=== PATIENT | female | born 1965 | race Caucasian/White ===

== ENCOUNTER 2016-11-09 09:33 | Emergency (ER) | payer SELFPAY ==
[2016-11-09] MEDS ORDERED: KETOROLAC TROMETHAMINE 30 MG/ML VIAL IV ONE (10:07)
[2016-11-09] MEDS ORDERED: diphenhydrAMINE HCL 50 MG/ML VIAL IV ONE (10:07)
[2016-11-09] MEDS ORDERED: NORMAL SALINE 1,000 ML IV ONE (10:22)
[2016-11-09] MEDS ORDERED: METOCLOPRAMIDE HCL 5 MG/ML VIAL IV ONE (10:22)
--- NOTE | 2016-11-09 10:26 | ERNOTE ---
Date of Service: 11/09/16 Time Seen by Provider: 11/09/16 09:54 Stated Complaint: NAUSEA/FEVER Presenting Symptoms:: cough, fever, other - headache, Nausea, headache Source: patient Exam Limitations: no limitations Immunizations: IMMUNIZATION HX Immunizations Up to Date Yes Allergies/Adverse Reactions: Allergies codeine [Codeine] Allergy (Severe, Verified 11/09/16 09:50) RASH, CANT BREATHE Penicillins Allergy (Severe, Verified 11/09/16 09:50) RASH, CANT BREATHE Sulfa (Sulfonamide Antibiotics) [Sulfa(Sulfonamide Antibiotics)] Allergy (Severe , Verified 11/09/16 09:50) RASH, CANT BREATHE Latex, Natural Rubber Allergy (Mild, Verified 11/09/16 09:50) latex Adverse Reaction (Mild, Verified 11/09/16 09:50) ITCH, RASH pneumococcal 23-valent polysacchari [From Pneumovax 23] Adverse Reaction (Mild, Verified 11/09/16 09:50) FEVER, SEVERE ARM EDEMA, VOMITING Home Medications: HOME MEDICATIONS Buspirone HCl [Buspar] 7.5 mg PO BID #60 tablet 05/24/14 [Last Taken Unknown] ALPRAZolam [Xanax] 1 mg PO TID PRN 02/07/16 [Last Taken Unknown] Ranitidine HCl [Zantac] 150 mg PO HS 02/07/16 [Last Taken Unknown] Aripiprazole [Abilify] 2 mg PO DAILY 11/09/16 [Last Taken Unknown] - History of Present Ilness Narrative: Pt. comes in with c/o cough, headache, nausea, fever, chills, and night sweatsfor four days. Pt. denies any SOB, CP, vomiting or diarrhea. Pt. states that she has had hot flashes and sweating as well and has been able to eat and drink but has not been able to eat or drink as much. Review of Systems - Review of Systems Constitutional: Present: fever, chills, diaphoresis, weakness, fatigue, malaise , decreased activity level. Absent: recent illness EYE: Present: no symptoms reported ENT: Present: no symptoms reported. Absent: ear pain, nose congestion, nasal drainage, sore throat, throat swelling Respiratory: Present: cough. Absent: shortness of breath, wheezing Cardiology: Present: no symptoms reported. Absent: chest pain, palpitations, edema Gastrointestinal/Abdominal: Present: nausea. Absent: vomiting, diarrhea, abdominal pain Genitourinary: Present: no symptoms reported. Absent: frequency, pain, dysuria , hematuria Musculoskeletal: Present: no symptoms reported. Absent: back pain, joint pain Skin: Present: no symptoms reported Neurological: Present: headache, dizziness/light-headedness - occasional. Absent: numbness, tingling All Other Systems: All systems neg except as marked - Patient's Past Medical History Patient History - Medical: Anxiety, Chronic Pain, Headache Patient History - Cardiac/Respiratory: No pertinent hx Patient History - Cancer: No Hx of Cancer Patient History - Surgical Procedures: Hysterectomy, Other Patient History - Other: None LMP (females 10-50): Menopausal - Social History Living Situations: home Abuse History: No History of abuse Psych History: Hx of Anxiety Smoking Status: Current every day smoker Alcohol Use: none Drug Use: none - Immunizations Immunizations Up to Date: Yes Physical Exam - Physical Exam General Appearance: Present: wd/wn, alert, no apparent distress Eye Exam: Normal inspection: bilateral, PERRL: bilateral, EOMI: bilateral Ears, Nose, Throat: Present: normal ENT inspection, normal pharynx Neck: Present: normal inspection, nontender. Absent: lymphadenopathy (R), lymphadenopathy (L), tender posterior midline Respiratory: Present: no respiratory distress, no accessory muscle use, chest nontender, lungs clear, decreased breath sounds Cardiovascular/Chest: Present: regular rate, rhythm, no murmur, normal peripheral pulses Gastrointestinal/Abdominal: Present: normal bowel sounds, nontender, nondistended, soft, no organomegaly Back Exam: Present: normal inspection, normal range of motion, no CVA tenderness , no vertebral tenderness Extremity Exam: Present: normal inspection, non-tender, normal range of motion, no edema Neurological Exam: Present: alert, oriented, normal mood/affect, no motor/ sensory deficits Skin Exam: Present: warm/dry, pallor. Absent: skin rash Lymphatic Exam: Present: no adenopathy ED Progress - Results and Orders Patient's Lab Results:: I have reviewed the patient's lab results. - Vital Signs Patient's Vital Signs:: I have reviewed the patient's vital signs. Vital Signs: Vital Signs 11/09/16 09:38 Temperature 36.8 C Pulse Rate 94 Respiratory 14 Rate Blood Pressure 100/66 O2 Sat by Pulse 98 Oximetry - X-Ray X-Ray #1 X-Ray: chest Interpretation: Reviewed by me X-ray Comments: No acute - Progress/Reassessment Chief Complaint: Cough Progress:: Improved Departure - Departure Clinical Impression: Upper respiratory infection Qualifiers: URI type: unspecified viral URI Qualified Code(s): J06.9 - Acute upper respiratory infection, unspecified; B97.89 - Other viral agents as the cause of diseases classified elsewhere Migraine Qualifiers: Migraine type: without aura Status migrainosus presence: without status migrainosus Intractability: not intractable Qualified Code(s): G43.009 - Migraine without aura, not intractable, without status migrainosus Disposition: Home self-care Condition: Good Instructions: Upper Respiratory Infection, Adult, [id number], Recurrent Migraine Headache, [id number] Additional Instructions: Please follow up with your primary provider in 2-3 days. Referrals: Lacy Boo MD [Primary Care Provider] -
[2016-11-09 10:29] LABS: Hematocrit 41.7 % (37.0-47.0); Hemoglobin 13.7 gm/dL (12.5-16.0); Mean Cell Volume 93.1 fl (78-100); Mean Corpuscular Hemoglobin 30.6 pg (27-31); Mean Corpuscular Hgb Conc 32.9 g/dl (32-36); Mean Platelet Volume 9.3 fl (6.0-9.5); Neutrophil # 5.3 K/mm3 (1.3-6.0); Neutrophil % 67.4 % (42-75.0); Platelet Count 213 K/mm3 (150-450); Red Blood Count 4.48 M/mm3 (4.2-5.4); Red Cell Distribution Width 12.4 % (11.5-14.0); White Blood Count 7.8 K/mm3 (4.0-10.5)
--- OUTSIDE RECORDS SUMMARY | 2016-11-09 10:30 | XMS REPORT | Continuity of Care Document ---
:1965 Author Organization [facility] ([facility]) Address [address] [place] [address] Phone [phone] Care Team Providers Name Role Phone Lacy Boo Primary Care Provider [phone] Source Comments This disclosure is being made pursuant to the Care Everywhere program, applicable federal and state laws, and may not contain all informaitonavailable regarding this patient.[facility] ([facility]) Active Allergies and Adverse Reactions Allergen Noted Date Severity Reactions Comments Bee Stings 05/01/2010 Angioedema Codeine Urticaria (Hives) Hydromorphone 05/30/2014 Urticaria (Hives) Latex, Natural Rubber Urticaria (Hives) Mold 09/15/2012 OTHER Ear pain, sinus problems Other Agent 04/11/2014 Urticaria (Hives) Pepperoni and vinegar Penicillins Urticaria (Hives) Pneumococcal 23-Paz Ps 07/19/2012 OTHER Hives/breathing Vaccine trouble. [place] 04/11/2014 Urticaria (Hives) Sulfadoxine Urticaria (Hives) Current Medications Prescription Sig. Disp. Refills Start Date End Date Status fluticasone 50 use 2 Sprays into 16 g 3 03/09/2013 Active mcg/Actuation nasal the nose daily. spray Indications: sinus symptoms ranitidine 150 mg Take 150 mg by Active tablet mouth at bedtime. albuterol 90 Use 2 Puffs by 1 Inhaler 0 07/29/2014 Active mcg/Actuation inhaler inhalation every 6 hours as needed. Must be seen for next refill. Indications: BRONCHOSPASM PREVENTION ALPRAZolam 0.5 mg Take 0.5 mg by Active tablet mouth at bedtime as needed. aripiprazole Take 5 mg by mouth Active (ABILIFY) 5 mg tablet daily. levETIRAcetam 500 mg Take 1 tablet (500 60 tablet 3 09/22/2015 Active tablet mg total) by mouth 2 times daily. busPIRone 7.5 mg Take 7.5 mg by 2015 Active tablet mouth 2 times daily. lamoTRIgine 100 mg Take 100 mg by 09/19/2015 Active tablet mouth at bedtime. Active Problems Problem Noted Date Chronic neck pain 10/10/2014 Bilateral hand numbness 10/10/2014 Neck pain 05/30/2014 Cervical spondylosis without myelopathy 05/30/2014 Microscopic hematuria 04/16/2014 Pelvic floor dysfunction 01/31/2014 Bladder pain 01/31/2014 Mixed incontinence 01/31/2014 Fecal incontinence 01/31/2014 Health education/counseling 07/19/2012 Low back pain 12/16/2010 Other physical therapy 12/16/2010 Immunizations Name Dates Previously Given Next Due Influenza, PF 07/19/2012,05/14/2011,05/01/2010 Influenza, quadrivalent PF 06/06/2013 Pneumococcal Polysaccharide, PPSV23 05/14/2011 (Pneumovax 23) Social History Tobacco Use Types Packs/Day Years Used Date Current Every Day Smoker Cigarettes 0.5 Smokeless Tobacco: Never Used Tobacco Cessation:Ready to Quit: Yes; Counseling Given: Yes Comments:pt. states she smokes 2-3 cig. a day plus a vapor cig. Alcohol Use Drinks/Week oz/Week Comments Yes 1 Glasses of wine 3 drinks a week. 1 Cans of beer Last Filed Vital Signs Vital Sign Reading Time Taken Blood Pressure 123/73 03/15/2016 11:14 AM CDT Pulse 79 03/15/2016 11:14 AM CDT Temperature 36.2 C (97.2 F) 03/15/2016 11:14 AM CDT Respiratory Rate 18 10/22/2015 2:53 PM CDT Height 1.613 m (5' 3.5") 03/15/2016 11:14 AM CDT Weight 58 kg (127 lb 13.9 oz) 03/15/2016 11:14 AM CDT Body Mass Index 22.29 03/15/2016 11:14 AM CDT Oxygen Saturation 98% 11/26/2015 12:27 PM CDT Plan of Care Patient Goal Type Goal Lifestyle Quit smoking / using tobacco Health Maintenance Due Date Last Done Comments Hepatitis B Vaccine (1 of 3 1965 - Primary Series) Tdap Vaccine 11/18/1978 MMR Vaccine 11/18/1985 Cervical Cancer Screening 06/02/2013 06/02/2010 Mammogram 09/15/2013 09/15/2012, 08/09/2011, 06/02/2010 Td Vaccine 12/04/2014 12/04/2004 (Previously completed) Lipid Disorder Screening 12/05/2015 12/04/2010, 05/01/2010 Influenza Vaccine: Seasonal 03/01/2016 06/06/2013, Additional history exists (#1) 07/19/2012, 05/14/2011 Results from Last 3 Months Not on file
[2016-11-09] MEDS ORDERED: diphenhydrAMINE HCL 50 MG/ML VIAL ONE (10:36)
[2016-11-09] MEDS ORDERED: KETOROLAC TROMETHAMINE 30 MG/ML VIAL ONE (10:37)
[2016-11-09] MEDS ORDERED: METOCLOPRAMIDE HCL 5 MG/ML VIAL ONE (10:37)
[2016-11-09 10:40] LABS: ALT 19 U/L (19-67); AST 15 U/L (0-48); Albumin * 3.9 gm/dl (3.4-5.0); Alkaline Phosphatase * 72 U/L (50-170); Anion Gap 10.1 mmol/L (6.8-13.8); Bilirubin, Total 0.3 mg/dL (0.0-1.1); Blood Urea Nitrogen 15 mg/dL (3-23); Ca. Corrected For Albumin 8.7 mg/dL (8.4-10.2); Calcium * 8.9 mg/dL (7.9-10.9); Carbon Dioxide 30.8 mmol/L (24-32.6); Chloride 106 mmol/L (97-106); Glucose * 90 mg/dL (70-110); Potassium 3.9 mmol/L (3.4-4.6); Sodium 143 mmol/L (132-142)
[2016-11-09 13:08] VITALS: BP 112/65
== END 2016-11-09 13:05 | disposition home or self-care (01) ==
LOC: ER 09:33
DX: J06.9 Acute upper respiratory infection, unspecified (principal); B97.89 Other viral agents as the cause of diseases classified elsewhere; G43.009 Migraine without aura, not intractable, without status migrainosus; Z72.0 Tobacco use; F41.9 Anxiety disorder, unspecified

== ENCOUNTER 2017-02-08 11:10 | Observation (INO) | payer OTHER ==
--- NOTE | 2017-02-08 11:24 | ERNOTE ---
Chest Pain/Cardiac HPI Time Seen by Provider: 02/08/17 11:10 Source: patient Exam Limitations: no limitations Immunizations: IMMUNIZATION HX Immunizations Up to Date Yes Allergies/Adverse Reactions: Allergies codeine [Codeine] Allergy (Severe, Verified 02/08/17 14:55) RASH, CANT BREATHE Penicillins Allergy (Severe, Verified 02/08/17 14:55) RASH, CANT BREATHE Sulfa (Sulfonamide Antibiotics) [Sulfa(Sulfonamide Antibiotics)] Allergy (Severe , Verified 02/08/17 14:55) RASH, CANT BREATHE Latex, Natural Rubber Allergy (Mild, Verified 02/08/17 14:55) latex Adverse Reaction (Mild, Verified 02/08/17 14:55) ITCH, RASH pneumococcal 23-valent polysacchari [From Pneumovax 23] Adverse Reaction (Mild, Verified 02/08/17 14:55) FEVER, SEVERE ARM EDEMA, VOMITING Home Medications: HOME MEDICATIONS Buspirone HCl [Buspar] 7.5 mg PO BID #60 tablet 05/24/14 [Last Taken Unknown] ALPRAZolam [Xanax] 1 mg PO TID PRN 02/07/16 [Last Taken Unknown] Ranitidine HCl [Zantac] 150 mg PO HS 02/07/16 [Last Taken Unknown] Aripiprazole [Abilify] 2 mg PO DAILY 11/09/16 [Last Taken Unknown] Narrative: Patient woke up this morning not feeling well with chest pain and shortness of breath, she had no symptoms when she went to bed last night. She also complains about tingling in her left arm Date (Duration): 02/08/17 Time (Timing): 05:00 Timing: constant, getting worse Severity/Quality: severe, tightness Location: epigastric Chest Pain Radiation: no radiation Activities at Onset: none Modifying Factors - Improves: Present: nothing Modifying Factors - Worsens: Present: nothing Nitro Today/Relief: no nitro taken today Aspirin Treatment Today: no aspirin today Associated Symptoms: Present: shortness of breath. Absent: dizziness, diaphoresis, fever/chills, nausea, vomiting Prior Chest Pain/Cardiac Workup: Reports: prior chest pain - years ago, was diagnosed with tachycardia Prior Treatment: Denies: recently seen Review of Systems - Review of Systems Constitutional: Absent: recent illness, fever, chills Respiratory: Present: See HPI, shortness of breath Cardiology: Present: See HPI, chest pain Gastrointestinal/Abdominal: Absent: nausea, vomiting, diarrhea, abdominal pain Genitourinary: Present: no symptoms reported Musculoskeletal: Present: no symptoms reported Neurological: Absent: headache - Patient's Past Medical History Patient History - Medical: Anxiety, Chronic Pain, Depression, Headache Patient History - Cardiac/Respiratory: No pertinent hx Patient History - Cancer: No Hx of Cancer Patient History - Surgical Procedures: Hysterectomy, Other Patient History - Other: None - Social History Living Situations: home Abuse History: No History of abuse Psych History: Hx of Anxiety Smoking Status: Current every day smoker Cigarettes Packs Per Day: 0.3 Alcohol Use: rarely Drug Use: none - Immunizations Immunizations Up to Date: Yes Physical Exam - Physical Exam General Appearance: Present: wd/wn, alert, no apparent distress, anxious Ears, Nose, Throat: Present: normal pharynx Respiratory: Present: no respiratory distress, normal breath sounds, no accessory muscle use, chest nontender, lungs clear Cardiovascular/Chest: Present: regular rate, rhythm, no murmur Gastrointestinal/Abdominal: Present: normal bowel sounds, nontender, nondistended, soft Extremity Exam: Present: no edema Neurological Exam: Present: alert, oriented, normal mood/affect, no motor/ sensory deficits Skin Exam: Present: normal color, warm/dry ED Progress - Results and Orders Patient's Lab Results:: I have reviewed the patient's lab results. - Vital Signs Patient's Vital Signs:: I have reviewed the patient's vital signs. - EKG EKG: NSR - sinustachycardia, very prominent Pwavese, no ST T wave changes, other - very prominent P waves, EKG read: Interp. by me - X-Ray X-Ray #1 X-Ray: chest - no acute Interpretation: Reviewed by me - Progress/Reassessment Progress Note-Subjective: 02/08/17 12:01 slight relieve with nitro, pain down to 7/10 discussed normal test results 02/08/17 12:16 no relieve with GI cocktail, discussed limitation of test to rule our CAD, patient would prefer admission had normal stress test in 09/2014 found out a couple of days ago that a close friend of hers had a heart attack, denies anxiety and need for xanax at this point 02/08/17 12:44 discussed with theodore Iniguez to admit for chest pain rule out Departure - Departure Clinical Impression: Chest pain Qualifiers: Chest pain type: precordial pain Qualified Code(s): R07.2 - Precordial pain Disposition: [facility] Condition: Good
[2017-02-08 11:27] LABS: Hematocrit 40.5 % (37.0-47.0); Mean Corpuscular Hemoglobin 31.1 pg (27-31); Mean Corpuscular Hgb Conc 34.6 g/dl (32-36); Mean Platelet Volume 9.1 fl (6.0-9.5); Neutrophil # 2.9 K/mm3 (1.3-6.0); Neutrophil % 48.9 % (42-75.0); Platelet Count 230 K/mm3 (150-450); Red Cell Distribution Width 12.4 % (11.5-14.0); White Blood Count 5.9 K/mm3 (4.0-10.5)
[2017-02-08 11:39] LABS: Prothrombin Time (Patient) 10.7 Seconds (9.4-11.4)
[2017-02-08 11:42] LABS: INR 1.03 INR (0.90-1.10)
[2017-02-08] MEDS ORDERED: NITROGLYCERIN 0.4 MG/TAB BTL SL ONE ×3 (11:42→12:17)
[2017-02-08 11:46] LABS: ALT 19 U/L (19-67); AST 13 U/L (0-48); Albumin * 3.7 gm/dl (3.4-5.0); Alkaline Phosphatase * 96 U/L (50-170); Anion Gap 10.4 mmol/L (6.8-13.8); BUN/Creatinine Ratio 9.9 (9.0-21.6); Bilirubin, Total 0.5 mg/dL (0.0-1.1); Blood Urea Nitrogen 8 mg/dL (3-23); Ca. Corrected For Albumin 8.9 mg/dL (8.4-10.2); Carbon Dioxide 29.5 mmol/L (24-32.6); Chloride 106 mmol/L (97-106); Glucose * 94 mg/dL (70-110); Potassium 3.9 mmol/L (3.4-4.6); Sodium 142 mmol/L (132-142); Troponin I Less than 0.017 ng/ml (0.00-0.10)
[2017-02-08] MEDS ORDERED: MAG HYDROX/ALUMINUM HYD/SIMETH 30 ML UDC PO ONE (11:59)
[2017-02-08] MEDS ORDERED: LIDOCAINE HCL 20 ML UDC PO ONE (11:59)
[2017-02-08] MEDS ORDERED: SUCRALFATE 1 G/10 ML UDC PO ONE (11:59)
[2017-02-08] MEDS ORDERED: NORMAL SALINE 1,000 ML IV ONE (12:17)
[2017-02-08] MEDS ORDERED: ASPIRIN 81 MG TAB.CHEW PO ONE (12:51)
[2017-02-08] MEDS ORDERED: ASPIRIN 81 MG TAB.CHEW ONE (12:51)
[2017-02-08] MEDS ORDERED: ATORVASTATIN CALCIUM 40 MG TABLET PO STA (12:53)
[2017-02-08] MEDS ORDERED: ATORVASTATIN CALCIUM 40 MG TABLET ONE (13:20)
[2017-02-08] MEDS ORDERED: ACETAMINOPHEN 325 MG TABLET PO PRN (14:50)
[2017-02-08 15:42] VITALS: BP 119/67
--- NOTE | 2017-02-08 18:35 | HP ---
Chief Complaint - Chief Complaint Date of Service: 02/08/17 Time of Service: 18:35 Chief Complaint: pain under LT breast on waking up. History of Present Illness: Patient is a 51-year-old WF with a H/O anxiety, depression, tobacco abuse, GERD with who had pain under the left breast on waking up. It was associated with mild SOB, no nausea, diaphoresis, or radiation[ told ERP she had tingling in her fingers]. No relief with GI cocktail, relieved with nitroglycerin. Admitted as a "rule out". Stress test negative in 09/2014. EKG and troponin normal in ER. - Patient's Past Medical History Patient History - Medical: Anxiety, Chronic Pain, Depression, Headache Patient History - Cancer: No Hx of Cancer Patient History - Surgical Procedures: Hysterectomy, Other Patient History - Other: None LMP (females 10-50): Menopausal - Family History Mother Family History - Medical: History Unknown Father Family History - Medical: - neck cancer 71 - Social History Living Situations: home Abuse History: No History of abuse Psych History: Hx of Anxiety Smoking Status: Current every day smoker - one third pack since age 17 Cigarettes Packs Per Day: 0.3 Have you smoked in the past 12 months: Yes Do you dip or chew tobacco: No Patient requests Smoking Cessation Consult: No Alcohol Use: rarely Drug Use: none - Immunizations Immunizations Up to Date: Yes Hx Pneumococcal Vaccination: Yes History of Influenza Vaccine: Yes Immunizations: IMMUNIZATION HX Immunizations Up to Date Yes Allergies/Adverse Reactions: Allergies Allergy/AdvReac Type Severity Reaction Status Date / Time codeine [Codeine] Allergy Severe RASH, CANT Verified 02/08/17 14:55 BREATHE Penicillins Allergy Severe RASH, CANT Verified 02/08/17 14:55 BREATHE Sulfa (Sulfonamide Allergy Severe RASH, CANT Verified 02/08/17 14:55 Antibiotics) BREATHE [Sulfa(Sulfonamide Antibiotics)] Latex, Natural Rubber Allergy Mild Verified 02/08/17 14:55 latex AdvReac Mild ITCH, RASH Verified 02/08/17 14:55 pneumococcal 23-valent AdvReac Mild FEVER, Verified 02/08/17 14:55 polysacchari SEVERE ARM [From Pneumovax 23] EDEMA, VOMITING Home Medications: HOME MEDICATIONS Buspirone HCl [Buspar] 7.5 mg PO BID #60 tablet 05/24/14 [Last Taken Unknown] ALPRAZolam [Xanax] 1 mg PO TID PRN 02/07/16 [Last Taken Unknown] Ranitidine HCl [Zantac] 150 mg PO HS 02/07/16 [Last Taken Unknown] Aripiprazole [Abilify] 2 mg PO DAILY 11/09/16 [Last Taken Unknown] Exam - Exam Vital Signs: Vital Signs - Last Taken Temp 36.9 C 02/08/17 15:05 Pulse 61 02/08/17 15:05 Resp 16 02/08/17 15:05 BP 119/67 02/08/17 15:05 Pulse Ox 100 02/08/17 15:05 Constitutional: Present: Young, Thin and frail - alert , in NAD ENT Exam: Present: hearing grossly normal, moist mucous membranes Eye Exam: bilateral eye: PERRL, EOMI Neck: Present: normal inspection, trachea midline Respiratory: Present: normal breath sounds. Absent: crackles Cardiovascular/Chest: Present: regular rate, rhythm. Absent: systolic murmur Peripheral Pulses: carotid (R): 2+, carotid (L): 2+ Abdomen: Present: Normal bowel sounds, soft - midly tender in midepigastrium, no rebound, mo masses. /Rectal: Present: Exam deferred Skin Exam: Present: normal color, warm/dry Eye contact: Present: cooperative, good eye contact, normal speech Thoughts: Present: normal thought pattern, normal mood /affect Diagnostic Studies: Laboratory Tests 02/08/17 11:20 WBC 5.9 Hgb 14.0 Hct 40.5 Plt Count 230 02/08/17 02/08/17 11:20 17:21 Troponin I Less than 0.017 Less than 0.017 02/08/17 11:20 Plasma Sodium 142 Potassium 3.9 BUN 8 Creatinine 0.81 Est GFR (Non-Af Amer) 80 Random Glucose 94 Calcium Adj for Albumin 8.9 Total Bilirubin 0.5 AST 13 ALT 19 Alkaline Phosphatase 96 Total Protein 7.0 Albumin 3.7 CXR: 02/08/17: 1. Stable chest. No acute cardiopulmonary processes identified. EK02/08/2017: NSR. No acute changes. Assessment/Plan - Procedures Results: 1. Precordial chest pain: Cardiac risk factors are: 1. Postmenopausal 2. Tobacco abuse Repeat troponin and EKG at approximately 17:30 PM Pain might be GI in nature. 2. Anxiety and depression: Chronic and stable. 3. Tobacco abuse: 4. GERD.
--- NOTE | 2017-02-08 18:58 | DS ---
(1) Chest pain, unspecified Problem: Acute Qualifiers: Chest pain type: unspecified Qualified Code(s): R07.9 - Chest pain, unspecified (2) Anxiety and depression Problem: Chronic (3) Chronic GERD Problem: Chronic (4) Nicotine abuse Problem: Chronic Description of Stay: DATE OF ADMISSION: 02/08/2017. DATE OF DISCHARGE: 02/08/2017. DIAGNOSTICS: NONE DISCHARGE SUMMARY: Patient is a 51-year-old WF with a H/O anxiety, depression, tobacco abuse, GERD with who had pain under the left breast on waking up. It was associated with mild SOB, no nausea, diaphoresis, or radiation[ told ERP she had tingling in her fingers]. No relief with GI cocktail, relieved with nitroglycerin. Admitted as a "rule out". Stress test negative in 09/2014. EKG and troponin normal in ER. On exam patient had mild epigastric tenderness and possible right upper quadrant pain. Serial troponins were negative. Patient was discharged in a stable condition and was advised to quit nicotine. She was advised to get right upper quadrant ultrasound on an outpatient basis. Increase ranitidine from 150 mg daily to 150 mg PO BID AC. Procedures Performed: none Discharge Disposition: Home self care Disposition: Home self-care Condition: Undetermined Discharge Activity: Activity as tolerated Referrals: Lacy Boo MD [Primary Care Provider] - Problem Oriented Discharge Instructions to Patient/Family: Smoking Cessation, Tips for Success, [id number], Indigestion, Emum-aa-[id number] Additional Patient Instructions (free text): New medications: Ranitidine increased from 150 mg@ HS to 150 mg PO BID AC. Please given handouts on 1. GERD precautions. 2. Smoking cessation. Patient to have ultrasound of right upper quadrant as outpatient on February 11, 2017 at 11Am. NPO after midnight before the ultrasound. Appointment with Dr. Moreau in 2-3 weeks. Prescriptions (Any new or edited meds): Ranitidine HCl [Zantac] 150 mg PO BIDAC #60 tablet Complete Home Medications List: Complete Home Medication List: Buspirone HCl [Buspar] 7.5 mg PO BID #60 tablet 05/24/14 ALPRAZolam [Xanax] 1 mg PO TID PRN 02/07/16 Aripiprazole [Abilify] 2 mg PO DAILY 11/09/16 Ranitidine HCl [Zantac] 150 mg PO BIDAC #60 tablet 02/08/17 levETIRAcetam [Keppra] 500 mg PO BID #20 tablet 02/24/17 Amb Orders for Discharge: US Abd Single Organ (Limited) Time Frame: 2 Weeks, Location: Determined By Patient
== END 2017-02-08 19:30 | disposition home or self-care (01) ==
LOC: ER 11:10 → MS 12:50
PROVIDERS: ADMIT Internal Medicine; ATTEND Internal Medicine
DX: R07.9 Chest pain, unspecified (principal); K21.9 Gastro-esophageal reflux disease without esophagitis; F41.8 Other specified anxiety disorders; Z72.0 Tobacco use
CPT/HCPCS: 36415; 71020; 80053; 84484; 85025; 85379; 85610; 85730; 93005; 99284; G0378

== ENCOUNTER 2017-02-24 19:29 | Emergency (ER) | payer OTHER ==
[2017-02-24] MEDS ORDERED: levETIRAcetam 500 MG TABLET ONE (20:06)
[2017-02-24] MEDS ORDERED: levETIRAcetam 500 MG TABLET PO ONE (20:15)
--- NOTE | 2017-02-24 20:15 | ERNOTE ---
Neuro HPI ER Record Date of Service: 02/24/17 Presenting Symptoms: weakness, other - SON Time Seen by Provider: 02/24/17 20:04 Source: patient Exam Limitations: no limitations Immunizations: IMMUNIZATION HX Immunizations Up to Date Yes History of Influenza Vaccine No Hx Pneumococcal Vaccination No Allergies/Adverse Reactions: Allergies Allergy/AdvReac Type Severity Reaction Status Date / Time codeine [Codeine] Allergy Severe RASH, CANT Verified 02/24/17 19:42 BREATHE Penicillins Allergy Severe RASH, CANT Verified 02/24/17 19:42 BREATHE Sulfa (Sulfonamide Allergy Severe RASH, CANT Verified 02/24/17 19:42 Antibiotics) BREATHE [Sulfa(Sulfonamide Antibiotics)] Latex, Natural Rubber Allergy Mild Verified 02/24/17 19:42 latex AdvReac Mild ITCH, RASH Verified 02/24/17 19:42 pneumococcal 23-valent AdvReac Mild FEVER, Verified 02/24/17 19:42 polysacchari SEVERE ARM [From Pneumovax 23] EDEMA, VOMITING Home Medications: HOME MEDICATIONS Buspirone HCl [Buspar] 7.5 mg PO BID #60 tablet 05/24/14 [Last Taken Unknown] ALPRAZolam [Xanax] 1 mg PO TID PRN 02/07/16 [Last Taken Unknown] Aripiprazole [Abilify] 2 mg PO DAILY 11/09/16 [Last Taken Unknown] Ranitidine HCl [Zantac] 150 mg PO BIDAC #60 tablet 02/08/17 [Last Taken Unknown] levETIRAcetam [Keppra] 500 mg PO BID #20 tablet 02/24/17 [Last Taken Unknown] - History of Present Illness Narrative: 51-year-old female presents to the emergency room after she says she had 2 seizures at work. Patient states that she has a history of epilepsy and that she quit taking her Keppra over a year because she was told she did not need it anymore. Patient states that she had neck surgery and after the external back they told her she did not need it Anymore so she quit taking it. patient states she was incontinant during her 2 seizures. she is able to recognize when she is going to have one and knows what to do. Date (Duration): 02/24/17 - Character of Deficits Baseline Cognition: Present: alert, oriented x 4 Baseline Gait: Present: walks w/o assistance Associated Symptoms: Denies: fever/chills, sweating, chest pain, altered mental status, decreased responsiveness Review of Systems - Review of Systems Constitutional: Present: See HPI, other - seizure EYE: Present: no symptoms reported ENT: Present: no symptoms reported Respiratory: Present: no symptoms reported Cardiology: Present: no symptoms reported Gastrointestinal/Abdominal: Present: no symptoms reported Genitourinary: Present: no symptoms reported Musculoskeletal: Present: no symptoms reported Skin: Present: no symptoms reported Neurological: Present: See HPI, seizure Endocrine: Present: no symptoms reported Hematologic/Lymphatic: Present: no symptoms reported Psych: Present: no symptoms reported All Other Systems: All systems neg except as marked - Patient's Past Medical History Patient History - Medical: Anxiety, Chronic Pain, Depression, Headache, Seizures Patient History - Cardiac/Respiratory: Arrhythmias, Hypertension Patient History - Cancer: No Hx of Cancer Patient History - Surgical Procedures: Hysterectomy, Tubal Ligation, Other, Hernia Repair Patient History - Other: None - Family History Mother Family History - Medical: History Unknown Family History - Cardiac/Respiratory: History Unknown Family History - Cancer: History Unknown Adoption Family History - Cardiac/Respiratory: TIA Father Family History - Medical: Family History - Cardiac/Respiratory: History Unknown Family History - Cancer: History Unknown - Social History Living Situations: home Abuse History: No History of abuse Psych History: Hx of Anxiety, Hx of Depression, Current tx/ever been on anti- depressants or anti-anxiety meds Smoking Status: Current every day smoker Alcohol Use: rarely Drug Use: none - Immunizations Immunizations Up to Date: Yes Hx Pneumococcal Vaccination: No History of Influenza Vaccine: No Physical Exam - Physical Exam Narrative: no seizures observed during her stay. patient alert and oriented, able to recall her seizures. General Appearance: Present: wd/wn, alert, no apparent distress Head Exam: Present: normal inspection, no evidence of injury Eye Exam: Normal inspection: bilateral Ears, Nose, Throat: Present: normal ENT inspection, normal pharynx Neck: Present: normal inspection, nontender Respiratory: Present: no respiratory distress, normal breath sounds, no accessory muscle use, chest nontender, lungs clear Cardiovascular/Chest: Present: regular rate, rhythm, no murmur, normal peripheral pulses Gastrointestinal/Abdominal: Present: normal bowel sounds, nontender, nondistended, soft, no organomegaly Back Exam: Present: normal inspection, normal range of motion, no CVA tenderness , no vertebral tenderness Extremity Exam: Present: normal inspection, non-tender, normal range of motion, no edema Neurological Exam: Present: alert, oriented, normal mood/affect, no motor/ sensory deficits, 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 Absent: facial droop, motor weakness Skin Exam: Present: normal color, warm/dry Lymphatic Exam: Present: no adenopathy ED Progress - Results and Orders Patient's Lab Results:: I have reviewed the patient's lab results. Results and Orders: positive for methamphetamine - Vital Signs Vital Signs: Vital Signs 02/24/17 02/24/17 19:35 19:53 Temperature 36.4 C L Pulse Rate 93 89 Respiratory 18 19 Rate Blood Pressure 95/57 115/63 O2 Sat by Pulse 98 93 Oximetry - CT/Ultrasound CT/Ultrasound Narrative: [facility] PATIENT RADIOLOGY STUDY REPORT Patient Patient Name:VALERIA STARR Date: 1965 Sex: F Order Number: [id number] Unique Exam ID: [id number] Exam Requested: HEADW/O - CT Head W/O * Date Scheduled: 02-24-2017 09:05 PM Study Priority: Requesting Service: Requesting Physician: Carlos Greer Reason for Exam: seizure Radiological Report : [facility] [address] [place] [id number] NAME: VALERIA STARR : 1965 MR #: [id number] 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 Seizure today. Headache. Dizziness. Black spots in vision. Technique: Multiple axial images of the head obtained without contrast enhancement. Comparison: 11/09/2013 Findings: Exam shows symmetric appearing ventricular system and cortical sulci. There is no positive mass effect or midline shift. There is no evidence for intracranial hemorrhage. There are no focal abnormal hypodensities to suggest vascular territory infarct. Visualized paranasal sinuses and mastoid air cells appear adequately aerated. IMPRESSION: STABLE NEGATIVE EXAM. Electronically signed by Topher Diez M.D.. Topher Diez MD Dict: 02/24/172109 Typed: 02/24/172109/ - Progress/Reassessment Chief Complaint: Seizure Activity Plan - Plan Plan: I spoke with the neurologist on-call ( Dr Arenas) who is a neurologist partner that she has sees. He advised to start patient on Keppra 500 mg by mouth twice a day and have her follow-up in the office tomorrow. Patient agrees to this plan of treatment. Departure Clinical Impression: Seizure - Departure Disposition: Home Follow Up Needed Condition: Stable Instructions: Epilepsy, [id number] Additional Instructions: Continue any previous home medications as directed. Given instructed to take her Keppra twice a day. Follow up with her neurologist in the morning. You should call his office and make an appointment. They are aware they need to be seen as soon as soon as possible tomorrow. Return to emergency room if symptoms return or become worse. Referrals: Lacy Boo MD [Primary Care Provider] - Leanne Winn MD [Staff Physician] - Prescriptions: levETIRAcetam [Keppra] 500 mg PO BID #20 tablet
[2017-02-24] MEDS ORDERED: KETOROLAC TROMETHAMINE 30 MG/ML VIAL IM ONE (20:16)
[2017-02-24] MEDS ORDERED: KETOROLAC TROMETHAMINE 30 MG/ML VIAL ONE (20:24)
[2017-02-24 20:30] LABS: Hematocrit 37.7 % (37.0-47.0); Hemoglobin 12.6 gm/dL (12.5-16.0); Mean Cell Volume 92.2 fl (78-100); Mean Corpuscular Hemoglobin 30.8 pg (27-31); Mean Corpuscular Hgb Conc 33.4 g/dl (32-36); Mean Platelet Volume 9.2 fl (6.0-9.5); Neutrophil # 5.7 K/mm3 (1.3-6.0); Platelet Count 216 K/mm3 (150-450); Red Blood Count 4.09 M/mm3 (4.2-5.4); Red Cell Distribution Width 12.6 % (11.5-14.0); White Blood Count 9.8 K/mm3 (4.0-10.5)
[2017-02-24] MEDS ORDERED: KETOROLAC TROMETHAMINE 30 MG/ML VIAL IV ONE (20:34)
[2017-02-24 20:48] LABS: ALT 20 U/L (19-67); AST 13 U/L (0-48); Albumin * 3.7 gm/dl (3.4-5.0); Alkaline Phosphatase * 92 U/L (50-170); Anion Gap 9.4 mmol/L (6.8-13.8); BUN/Creatinine Ratio 9.6 (9.0-21.6); Bilirubin, Total 0.3 mg/dL (0.0-1.1); Blood Urea Nitrogen 9 mg/dL (3-23); Ca. Corrected For Albumin 8.6 mg/dL (8.4-10.2); Calcium * 8.7 mg/dL (7.9-10.9); Carbon Dioxide 29.6 mmol/L (24-32.6); Chloride 105 mmol/L (97-106); Glucose * 96 mg/dL (70-110); Sodium 140 mmol/L (132-142); Total Protein 6.5 gm/dL (6.2-8.2); Troponin I Less than 0.017 ng/ml (0.00-0.10)
[2017-02-24 20:48] LABS: Urine Bilirubin Negative (NEGATIVE); Urine Blood Negative /ul (NEGATIVE); Urine Ketone Negative (NEGATIVE); Urine Nitrite Negative (NEGATIVE); Urine Protein Negative (NEGATIVE); Urine Specific Gravity <=1.005 SP.GR. (1.005-1.010); Urine Urobilinogen Normal (NORMAL)
[2017-02-24 20:55] LABS: Urine Appearance Clear; Urine Bacteria TRACE; Urine Color Pale Yellow; Urine RBC None Seen /hpf (0-5); Urine WBC None Seen /hpf (0-5)
[2017-02-24 21:13] LABS: Cocaine Ur Negative (NEGATIVE); Urine Barbiturate Negative (NEGATIVE); Urine Benzodiazepines Negative (NEGATIVE); Urine Opiates Negative (NEGATIVE); Urine PCP Negative (NEGATIVE); Urine THC Negative (NEGATIVE)
[2017-02-24 21:53] VITALS: BP 98/52
== END 2017-02-24 22:30 | disposition home or self-care (01) ==
LOC: ER 19:29
DX: R56.9 Unspecified convulsions (principal); F41.9 Anxiety disorder, unspecified; F32.9 Major depressive disorder, single episode, unspecified; F17.200 Nicotine dependence, unspecified, uncomplicated

== ENCOUNTER 2017-04-21 15:20 | Emergency (ER) | payer OTHER ==
[2017-04-21 15:57] LABS: Urine Bilirubin Negative (NEGATIVE); Urine Ketone Negative (NEGATIVE); Urine Protein Negative (NEGATIVE); Urine Specific Gravity <=1.005 SP.GR. (1.005-1.010); Urine Urobilinogen Normal (NORMAL)
[2017-04-21 16:14] LABS: Urine Appearance Clear; Urine Bacteria 1+; Urine Blood 5 /ul (NEGATIVE); Urine Color Yellow; Urine Nitrite Positive (NEGATIVE); Urine RBC None Seen /hpf (0-5); Urine WBC 0-5 /hpf (0-5)
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
[2017-04-21] MEDS ORDERED: KETOROLAC TROMETHAMINE 60 MG/2 ML VIAL IM ONE ×2 (17:02→17:05)
[2017-04-21 20:44] VITALS: BP 121/73
== END 2017-04-21 18:00 | disposition home or self-care (01) ==
LOC: ER 15:20
DX: R10.2 Pelvic and perineal pain (principal); N30.00 Acute cystitis without hematuria; G89.29 Other chronic pain; I10 Essential (primary) hypertension; F41.8 Other specified anxiety disorders; F17.200 Nicotine dependence, unspecified, uncomplicated

== ENCOUNTER 2017-06-13 12:11 | Emergency (ER) | payer OTHER ==
[2017-06-13 12:21] VITALS: BP 116/76
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
[2017-06-13 13:06] LABS: Cocaine Ur Negative (NEGATIVE); Urine Barbiturate Negative (NEGATIVE); Urine Benzodiazepines Negative (NEGATIVE); Urine Opiates Negative (NEGATIVE); Urine PCP Negative (NEGATIVE); Urine THC Negative (NEGATIVE)
[2017-06-13 13:11] LABS: Hematocrit 38.5 % (37.0-47.0); Hemoglobin 13.3 gm/dL (12.5-16.0); Mean Cell Volume 89.5 fl (78-100); Mean Corpuscular Hemoglobin 30.9 pg (27-31); Mean Corpuscular Hgb Conc 34.5 g/dl (32-36); Mean Platelet Volume 9.6 fl (6.0-9.5); Neutrophil # 3.6 K/mm3 (1.3-6.0); Neutrophil % 46.6 % (42-75.0); Platelet Count 235 K/mm3 (150-450); Red Cell Distribution Width 12.3 % (11.5-14.0); White Blood Count 7.7 K/mm3 (4.0-10.5)
[2017-06-13 13:18] LABS: ALT 19 U/L (19-67); AST 20 U/L (0-48); Albumin * 4.3 gm/dl (3.4-5.0); Alkaline Phosphatase * 101 U/L (50-170); Anion Gap 13.1 mmol/L (6.8-13.8); Bilirubin, Total 0.8 mg/dL (0.0-1.1); Blood Urea Nitrogen 11 mg/dL (3-23); Ca. Corrected For Albumin 8.7 mg/dL (8.4-10.2); Calcium * 9.3 mg/dL (7.9-10.9); Carbon Dioxide 27.9 mmol/L (24-32.6); Chloride 99 mmol/L (97-106); Glucose * 100 mg/dL (70-110); Sodium 136 mmol/L (132-142); Total Protein 7.7 gm/dL (6.2-8.2)
== END 2017-06-13 13:50 | disposition home or self-care (01) ==
LOC: ER 12:11
DX: F19.10 Other psychoactive substance abuse, uncomplicated (principal); F41.8 Other specified anxiety disorders; G89.29 Other chronic pain; J44.9 Chronic obstructive pulmonary disease, unspecified; I10 Essential (primary) hypertension; F17.200 Nicotine dependence, unspecified, uncomplicated
CPT/HCPCS: 36415; 80053; 80307; 85025; 99284; G0481

== ENCOUNTER 2017-07-22 11:02 | Day surgery (SDC) | payer OTHER ==
[~2017-07-22 11:02] MED LIST: CIPROFLOXACIN HCL 500 MG TABLET PO PRN; KETOROLAC TROMETHAMINE 30 MG/ML VIAL IV PRN; NORMAL SALINE 1,000 ML IV PRN
[2017-07-22] MEDS ORDERED: RINGER'S SOLUTION,LACTATED 1,000 ML IV ONE (11:50)
[2017-07-22 13:48] VITALS: BP 91/55
== END 2017-07-22 11:03 | disposition home or self-care (01) ==
LOC: AMB 11:02
PROVIDERS: ATTEND Urology
PROC: 0T7B8ZZ Dilation of Bladder, Via Natural or Artificial Opening Endoscopic (ICD-10-PCS; principal; 2017-07-22 12:00)
DX: N30.10 Interstitial cystitis (chronic) without hematuria (principal); G40.89 Other seizures; F33.8 Other recurrent depressive disorders; F17.210 Nicotine dependence, cigarettes, uncomplicated; Z68.42 Body mass index [BMI] 45.0-49.9, adult